=== PATIENT | male | born 1955 | race Caucasian/White ===

== ENCOUNTER → 2016-11-03 | Outpatient (CLI) | payer OTHER ==
[~2016-11-03] MED LIST: ALLDSR60 PO; NCNUNK PO; OMEG10007 PO; SIMV5TAB2 PO
--- NOTE | 2016-11-03 11:43 | DIAGNOSTIC IMAGING REPORT ---
CHEST 2 VIEWS ROUTINE HISTORY: Smoking history. COMPARISON: Chest 10/02/2015. FINDINGS: The lungs are clear. Cardiac silhouette is normal in size. No pleural effusions. No pneumothorax. IMPRESSION: No acute process. Electronically signed by: Gonsalo Guerra M.D. 11/03/2016 11:41 AM Dictated Date/Time: 11/03/2016 11:39 AM
[2016-11-03 18:23] LABS: ALT/SGPT 54 U/L (12-78); BLOOD UREA NITROGEN 21 mg/dl (7-18); BUN/CREATININE RATIO 19.1 (10-20); CARBON DIOXIDE 27 mmol/L (21-32); CHLORIDE 103 mmol/L (98-107); GLUCOSE 105 mg/dl (70-99); POTASSIUM 4.3 mmol/L (3.5-5.1); SODIUM 137 mmol/L (136-145)
[2016-11-03 18:26] LABS: ALB/GLOB RATIO 1.3 (0.9-2); ALKALINE PHOSPHATASE 84 U/L (45-117); AST/SGOT 37 U/L (15-37)
[2016-11-04 06:08] LABS: ESTIMATED AVERAGE GLUCOSE 105 mg/dl; HA1C FLAG Normal (Normal)
== END | disposition home or self-care (01) ==
LOC: C.LABPVFM 11:13
PROVIDERS: ATTEND Nurse Practitioner
DX: Z87.891 Personal history of nicotine dependence (principal); Z13.1 Encounter for screening for diabetes mellitus; R73.01 Impaired fasting glucose

== ENCOUNTER → 2017-02-04 | Outpatient (CLI) | payer OTHER ==
[2017-02-04 13:10] LABS: ALT/SGPT 56 U/L (12-78); BLOOD UREA NITROGEN 16 mg/dl (7-18); BUN/CREATININE RATIO 15.7 (10-20); CALCIUM 8.9 mg/dl (8.5-10.1); CARBON DIOXIDE 28 mmol/L (21-32); CHLORIDE 107 mmol/L (98-107); CHOLESTEROL 126 mg/dl (0-200); GLUCOSE 93 mg/dl (70-99); SODIUM 141 mmol/L (136-145); TRIGLYCERIDES 65 mg/dl (0-150); VERY LOW DENSITY LIPOPROT CALC 13 mg/dl
[2017-02-04 13:13] LABS: ALB/GLOB RATIO 1.3 (0.9-2); ALKALINE PHOSPHATASE 67 U/L (45-117); AST/SGOT 35 U/L (15-37); CHOLESTEROL/HDL RATIO 2.7; HDL CHOLESTEROL 47 mg/dl; LDL CHOLESTEROL CALCULATED 66 mg/dl
== END | disposition home or self-care (01) ==
LOC: C.LABPVFM 08:34
PROVIDERS: ATTEND Neuromusculoskeletal Medicine & OMM
DX: R53.83 Other fatigue (principal); E78.5 Hyperlipidemia, unspecified

== ENCOUNTER → 2017-02-07 | Outpatient (CLI) | payer OTHER ==
--- NOTE | 2017-02-07 15:11 | DIAGNOSTIC IMAGING REPORT ---
KNEE 1 OR 2 VIEWS ROUTINE CLINICAL HISTORY: Right knee pain COMPARISON: None. DISCUSSION: No acute fractures are visualized. There are osteoarthritic changes with medial joint compartment narrowing. IMPRESSION: Moderate osteoarthritic change with medial joint compartment narrowing Electronically signed by: Facundo Baldwin M.D. 02/07/2017 3:10 PM Dictated Date/Time: 02/07/2017 3:09 PM
--- NOTE | 2017-02-07 15:25 | DIAGNOSTIC IMAGING REPORT ---
BILATERAL KNEES, AP STANDING CLINICAL HISTORY: Right knee pain. COMPARISON STUDY: None. FINDINGS: Moderate to severe cartilage space narrowing within the medial compartment of the right knee. The remaining cartilage spaces are maintained within the bilateral knees. Mild subchondral sclerosis within the medial compartment of the right knee. No fractures. Soft tissues are unremarkable. IMPRESSION: Moderate to severe osteoarthritis within the medial compartment of the right knee. Electronically signed by: Gonsalo Guerra M.D. 02/07/2017 3:23 PM Dictated Date/Time: 02/07/2017 3:22 PM
== END | disposition home or self-care (01) ==
LOC: C.RADPV 14:30
PROVIDERS: ATTEND Neuromusculoskeletal Medicine & OMM
DX: M17.11 Unilateral primary osteoarthritis, right knee (principal); M25.561 Pain in right knee

== ENCOUNTER → 2017-03-20 | Outpatient (CLI) | payer OTHER | END | disposition home or self-care (01) | LOC: C.LABPVFM 16:03 | PROVIDERS: ATTEND Neuromusculoskeletal Medicine & OMM | DX: E55.9 Vitamin D deficiency, unspecified (principal); F32.0 Major depressive disorder, single episode, mild ==

== ENCOUNTER → 2017-09-14 | Outpatient (CLI) | payer OTHER ==
--- NOTE | 2017-09-14 16:11 | DIAGNOSTIC IMAGING REPORT ---
KUB CLINICAL HISTORY: SPERMATOCELE COMPARISON STUDY: 06/21/2016 FINDINGS: There is no pathologic bowel dilatation. There is mild fecal retention. There are no calcifications suspicious for urinary tract calculi. The renal shadows are largely obscured by overlying bowel gas and fecal material IMPRESSION: 1. No calculi identified on conventional radiographic imaging Electronically signed by: Facundo Baldwin M.D. 09/14/2017 4:09 PM Dictated Date/Time: 09/14/2017 4:08 PM
== END | disposition home or self-care (01) ==
LOC: C.LABPVFM 15:45
PROVIDERS: ATTEND Urology
DX: N43.40 Spermatocele of epididymis, unspecified (principal)